=== PATIENT | male | born 1955 | race Caucasian/White ===

== ENCOUNTER 2021-08-09 19:05 | Observation (INO) ==
[2021-08-09] MEDS ORDERED: Isovue-370 500 ML BOTTLE IVP ONE (23:58)
[2021-08-10 00:18] LABS: Basophils # 0.1 K/mcL (0.0-0.2); Basophils % 0.4 %; Eosinophils # 0.2 K/mcL (0.0-0.6); Eosinophils % 1.3 %; Hemoglobin 16.6 g/dL (12.9-16.9); Immature Granulocytes % 0.5 % (0-4); Lymphocytes # 3.9 K/mcL (0.6-4.6); Mean Corpuscular HGB Conc 33.2 g/dL (31.6-35.5); Mean Corpuscular Hemoglobin 30.3 pg (28.0-33.3); Mean Corpuscular Volume 91.4 fL (83.0-100.0); Mean Platelet Volume 10.7 fL (9.4-12.4); Monocytes # 0.7 K/mcL (0.0-1.3); Monocytes % 6.2 %; Neutrophils # 6.8 K/mcL (1.6-8.9); Platelet Count 240 K/mcL (140-400); Red Blood Count 5.47 M/mcL (4.19-5.50); Red Cell Distribution Width 14.3 % (11.5-14.5); Segmented Neutrophils % 58.6 %; White Blood Count 11.7 K/mcL (4.3-11.1)
[2021-08-10 00:21] LABS: Prothrombin Time 11.2 Seconds (9.4-12.1)
[2021-08-10 00:35] LABS: Alanine Aminotransferase 17 Units/L (7-52); Albumin 4.1 g/dL (3.5-5.7); Albumin/Globulin Ratio 1.2 (1.1-2.2); Alkaline Phosphatase 111 Units/L (34-104); Aspartate Amino Transferase 13 Units/L (13-39); BUN/Creatinine Ratio 12 (6-26); Bilirubin,Total 0.6 mg/dL (0.3-1.0); Blood Urea Nitrogen 17 mg/dL (8-23); Calcium 9.7 mg/dL (8.6-10.3); Carbon Dioxide 24 mEq/L (23-29); Chloride 105 mEq/L (98-107); Globulin 3.4 g/dL (2.4-3.5); Glucose 171 mg/dL (70-105); Osmolality,Calculated 292 (280-300); Potassium 4.2 mEq/L (3.5-5.1); Sodium 138 mEq/L (136-145); Total Protein 7.5 g/dL (6.4-8.9); eGFR For African Americans 58 (> 60); eGFR For Non-African Americans 48 (> 60)
[2021-08-10 00:52] LABS: Troponin I < 0.03 ng/mL (< 0.04)
[2021-08-10 02:14] LABS: ABG Base Excess -1 mEq/L (-2 to 3); ABG HCO3 22 mEq/L (21-27); ABG Oxygen Saturation 84 % (95-98); ABG PCO2 31 mmHg (35-45); ABG PH 7.47 pH Units (7.32-7.45); ABG PO2 45 mmHg (85-104); ABG TCO2 23 mEq/L (20-26)
[2021-08-10 02:45] LABS: Influenza A PCR Negative (Negative); Influenza B PCR Negative (Negative); Resp. Syncytial Virus PCR Negative (Negative); SARS-CoV-2 by PCR (In House) Negative (Negative)
[2021-08-10 03:31] LABS: VBG HCO3 24 mEq/L (21-27); VBG PCO2 35 mmHg (41-51); VBG PH 7.44 pH Units (7.32-7.42); VBG PO2 43 mmHg (25-50)
[2021-08-10] MEDS ORDERED: Melatonin 3 MG TABLET PO PRN (03:48)
[2021-08-10] MEDS ORDERED: Naloxone 0.4 MG/ML INJ IVP PRN (03:48)
[2021-08-10] MEDS ORDERED: *HR* OxyCODONE Immed Rel 5 MG TABLET PO PRN (04:11)
[2021-08-10] MEDS ORDERED: Acetaminophen 325 MG TABLET PO PRN (04:11)
[2021-08-10] MEDS ORDERED: *HR* HYDROcodone/Acet 5/325 mg TABLET PO PRN (04:11)
[2021-08-10 04:32] LABS: Adenovirus Not Detected (Not Detect); Bordetella Pertussis Not Detected (Not Detect); Chlamydophila pneumoniae Not Detected (Not Detect); Coronavirus 229E Not Detected (Not Detect); Coronavirus HKU1 Not Detected (Not Detect); Coronavirus NL63 Not Detected (Not Detect); Coronavirus OC43 Not Detected (Not Detect); Human Metapneumovirus Not Detected (Not Detect); Human Rhinovirus/Enterovirus Not Detected (Not Detect); Influenza A Subtype 2009 H1 Not Detected (Not Detect); Influenza B Not Detected (Not Detect); Mycoplasma pneumoniae Not Detected (Not Detect); Parainfluenza Virus 1 Not Detected (Not Detect); Parainfluenza Virus 2 Not Detected (Not Detect); Parainfluenza Virus 3 Not Detected (Not Detect); Parainfluenza Virus 4 Not Detected (Not Detect); Respiratory Syncytial Virus Not Detected (Not Detect); SARS-CoV-2 Not Detected (Not Detect)
[2021-08-10] MEDS ORDERED: Perflutren Lipid Microsphere 1.3 ML in 0.9 % Sodium Chloride 8.7 ML IVP PRN (05:59)
[2021-08-10 07:16] LABS: ABG Base Excess 0 mEq/L (-2 to 3); ABG HCO3 18 mEq/L (21-27); ABG Oxygen Saturation 100 % (95-98); ABG PCO2 19 mmHg (35-45); ABG PO2 158 mmHg (85-104); ABG TCO2 19 mEq/L (20-26)
[2021-08-10] MEDS: *HR* Heparin 5,000 UNIT/ML VIAL SQ SCH ×2 (12:53→18:05)
[2021-08-11 04:55] VITALS: PULSE 86
[2021-08-11] MEDS: *HR* Heparin 5,000 UNIT/ML VIAL SQ SCH (06:17)
[2021-08-11 06:54] VITALS: BP 127/98; TEMP 96.7
[2021-08-11] MEDS ORDERED: traZODone 50 MG TABLET PO PRN (07:46)
[2021-08-11] MEDS ORDERED: Metoprolol XL (24 HR) Succ 25 MG TAB.ER.24H PO SCH (09:00)
[2021-08-11] MEDS ORDERED: lisinopriL 20 MG TABLET PO SCH (09:00)
[2021-08-11] MEDS ORDERED: allopurinoL 300 MG TABLET PO SCH (09:00)
[2021-08-11] MEDS ORDERED: Cholecalciferol (D-3) 1,000 UNIT (25MCG) TABLET PO SCH (09:00)
[2021-08-11 10:34] VITALS: O2SAT 88
[2021-08-11] MEDS ORDERED: Mirtazapine 15 MG TABLET PO SCH (21:00)
== END 2021-08-11 12:31 | disposition home or self-care (01) ==
LOC: CDU 19:05 → EMEROOARM 19:05 → SUATTDRO 08-10 04:33 → 3NENU 08-10 12:56
PROVIDERS: ADMIT Student in an Organized Health Care Education/Training Program; ATTEND Internal Medicine